=== PATIENT | male | born 1970 | race Caucasian/White ===

== ENCOUNTER 2024-11-29 08:22 | Day surgery (SDC) | payer MEDICARE, MEDICAID ==
[~2024-11-29] VITALS: Ht 180.3 cm; Wt 95.9 kg
[~2024-11-29 08:22] MED LIST: ACYC-126 PO; IBUP-1984 PO
[2024-11-29 08:42] VITALS: BP 126/70; PULSE 80; RESP 13; TEMP 97.8
[2024-11-29] MEDS ORDERED: propofol 10mg/ml 20ml vial IV ONE (11:04)
[2024-11-29 11:35] VITALS: BP 117/82; PULSE 76; RESP 16; O2SAT 99
[2024-11-29 11:45] VITALS: BP 107/72; PULSE 75; RESP 16; O2SAT 98
[2024-11-29 11:55] VITALS: BP 126/80; PULSE 85; RESP 16; O2SAT 98
[2024-11-29 12:02] VITALS: BP 131/85; PULSE 80; RESP 16; O2SAT 99
== END 2024-11-29 12:15 | disposition home or self-care (01) ==
LOC: GI LAB 08:22
PROVIDERS: ATTEND Internal Medicine Gastroenterology
DX: K63.5 Polyp of colon (principal); K57.30 Diverticulosis of large intestine without perforation or abscess without bleeding; Z91.09 Other allergy status, other than to drugs and biological substances; Z79.899 Other long term (current) drug therapy; Z85.72 Personal history of non-Hodgkin lymphomas
CPT/HCPCS: 45385; A4620; C1889; J2704; J7030; Z7512; 88305

== ENCOUNTER 2025-06-05 07:29 | Day surgery (SDC) | payer MEDICARE, MEDICAID ==
[~2025-06-05] VITALS: Ht 180.3 cm; Wt 97.9 kg
[2025-06-05] VITALS (9 sets, daily range): BP systolic 92–143; BP diastolic 55–84; PULSE 74–101; RESP 13–20; TEMP 97.9; O2SAT 93–98
[~2025-06-05 07:29] MED LIST changes: -ACYC-126 PO; -IBUP-1984 PO; +MIDAZolam 1 MG/ML 5ML VIAL ONE; +ZONI50CA15 PO; +fentaNYL/PF 50MCG/1 ML 2ML syringe ONE; +ringers solution, lacted 1,000 ML IV SCH
--- NOTE | 2025-06-05 08:21 | ELECTROCARDIOGRAPH REPORT ---
[facility] Test Date: 2025-06-05 Test Time: 08:19:07 Pat Name: NYA MCALLISTER Department: SHORT STAY 1ST FLOOR Patient ID: [facility]-[id number] Room: Gender: M Senior Portfolio Analyst: boris : 1970 Requested By: WANDA RIVERS Order Number: [id number] Reading MD: Dr. Noa Gill Measurements Intervals [place] Rate: 82 P: 44 GA: 178 QRS: 16 QRSD: 97 T: 17 QT: 361 QTc: 422 Interpretive Statements Sinus rhythm Early transition Electronically Signed On 06-10-2025 6:58:[address] Noa Gill Please click the below link to view image of tracing.
--- NOTE | 2025-06-06 15:49 | PATHOLOGY REPORT ---
[facility] [address] [place] [address] SURGICAL PATHOLOGY REPORT CaseNumber: [id number] Surgeon:LIAN Vo CLINICAL INFORMATION CLINICAL INFORMATION: Epigastric pain. DIAGNOSIS DIAGNOSIS: STOMACH, ANTRUM; BIOPSY - NO SIGNIFICANT HISTOLOGIC ABNORMALITY. - NEGATIVE FOR INTESTINAL METAPLASIA. - NEGATIVE FOR ATROPHY. - NEGATIVE FOR H. PYLORI BY IMMUNOPEROXIDASE STUDY. - NEGATIVE FOR DYSPLASIA/NEOPLASIA. MICROSCOPIC DESCRIPTION MICROSCOPIC DESCRIPTION: One H&E stained slide is examined. Present is gastric mucosa with well-developed specialized compartment - no evidence of atrophy. There is no significant inflammatory infiltrate, no intestinal metaplasia by routine light microscopy, and no dysplasia/neoplasia. Immunoperoxidase study for H. pylori does not highlight organisms. GROSS DESCRIPTION GROSS DESCRIPTION: Received in a container of formalin labeled with the patient's name, number, and "antrum biopsy" is a 0.3 cm piece of strauss tissue. The specimen is entirely submitted as A1. The time at which the specimen was removed was not provided. The time at which the specimen was placed in formalin was not provided. Electronically signed by: Oscar Virk M.D. 06/06/2025 3:13:00 PM
== END 2025-06-05 10:48 | disposition home or self-care (01) ==
LOC: GI LAB 07:29
PROVIDERS: ATTEND Internal Medicine Gastroenterology
DX: K30 Functional dyspepsia (principal); K21.00 Gastro-esophageal reflux disease with esophagitis, without bleeding; K31.89 Other diseases of stomach and duodenum; I10 Essential (primary) hypertension; K21.9 Gastro-esophageal reflux disease without esophagitis; Z87.891 Personal history of nicotine dependence; Z79.899 Other long term (current) drug therapy; Z98.890 Other specified postprocedural states; Z88.8 Allergy status to other drugs, medicaments and biological substances
CPT/HCPCS: 43239; 82948; 88305; 88342; 93005; A4620; J2250; J3010; J7120; Z7512; Z7610; 99152